=== PATIENT | male | born 1995 | race African-American/Black ===

== ENCOUNTER 2020-06-06 22:14 | Emergency (ER) | payer OTHER ==
[~2020-06-06] VITALS: Ht 185.4 cm; Wt 102.1 kg
[2020-06-06 23:05] VITALS: BP 127/79; TEMP 98.2
== END 2020-06-06 23:05 | disposition home or self-care (01) ==
LOC: ED 22:14
DX: R05 Cough (principal); J06.9 Acute upper respiratory infection, unspecified; Z20.828 Contact with and (suspected) exposure to other viral communicable diseases
CPT/HCPCS: 87635; 99282; U0003